=== PATIENT | male | born 1945 | race African-American/Black ===

== ENCOUNTER 2018-06-09 11:15 | Inpatient (IN) | payer OTHER, MEDICAID ==
[~2018-06-09] VITALS: Ht 175.3 cm; Wt 73.0 kg
[2018-06-09] VITALS (9 sets, daily range): BP systolic 121–183; BP diastolic 71–110
[~2018-06-09 11:15] MED LIST: AMLO10TA80 PO; ASPI-1159 PO; ATOR20TA65 PO; CHOL200077 PO
[2018-06-09] MEDS ORDERED: DILTIAZEM HCL 5MG/ML 5ML VIAL IV ONE (11:30)
[2018-06-09 12:34] LABS: BG BASE EXCESS 1.6 mmol/L (-2.0-2.0); BG CARBOXYHEMOGLOBIN 0.3 % (0.5-1.5); BG DEOXYHEMOGLOBIN 6.9 % (0.0-5.0); BG FRACTION INSPIRED OXYGEN 21; BG HCO3 ACT 26.5 mmol/L (22.0-26.0); BG OXYGEN SATURATION 93.1 % (92.0-98.5); BG OXYHEMOGLOBIN 92.8 % (94.0-97.0); BG PCO2 42.6 mmHg (35.0-45.0); BG PH 7.411 (7.350-7.450); BG PO2 68.8 mmHg (75.0-100.0); BG SAMPLE SITE RIGHT RADIAL; BG TOTAL HEMOGLOBIN 13.7 g/dL (12.0-18.0); BG VENT MODE ROOM AIR
[2018-06-09 13:22] LABS: BASOPHILS % 1.2 % (0.0-2.0); EOSINOPHILS % 6.2 % (0.0-5.0); HEMATOCRIT. 43.3 % (42.0-52.0); HEMOGLOBIN. 14.2 g/dL (14.0-18.0); LYMPHOCYTES % 21.8 % (20.0-50.0); MEAN CORPUSCULAR HEMOGLOBIN 25.7 pg (28.0-32.0); MEAN CORPUSCULAR VOLUME 78.4 fL (80.0-94.0); MEAN PLATELET VOLUME 8.6 fl (7.4-10.4); MONOCYTES % 8.3 % (2.0-8.0); NEUTROPHILS % 62.5 % (40.0-76.0); PLATELET 224 x1000/uL (130-400); RED BLOOD CELL COUNT 5.52 mill/uL (4.7-6.1); RED CELL DISTRIBUTION WIDTH 14.7 % (11.6-14.6)
[2018-06-09 13:32] LABS: CHLORIDE 105 mEq/L (98-107)
[2018-06-09 13:33] LABS: PARTIAL THROMBOPLASTIN TIME 29.9 sec (23.4-31.0); PROTHROMBIN TIME 10.5 sec (9.1-11.1)
[2018-06-09 13:40] LABS: CREATINE KINASE 65 IU/L (39-308)
[2018-06-09] MEDS ORDERED: ASPIRIN 325MG TABLET PO ONE (13:45)
[2018-06-09] MEDS ORDERED: ONDANSETRON HCL 4MG/2ML INJ IV PRN (15:30)
[2018-06-09] MEDS ORDERED: ACETAMINOPHEN 325MG TABLET PO PRN (15:30)
[2018-06-09] MEDS ORDERED: ENALAPRIL 2.5MG/2ML VIAL 2ML IV NR (16:00)
[2018-06-09] MEDS: ENOXAPARIN 40MG/0.4ML SYR SUBCUT SCH (17:52)
[2018-06-09] MEDS: METOPROLOL TARTRATE 25MG TABLET PO SCH (21:01)
[2018-06-09] MEDS: AMLODIPINE 5MG TABLET PO SCH (21:01)
[2018-06-10] VITALS (13 sets, daily range): BP systolic 99–175; BP diastolic 20–93
[2018-06-10 06:21] LABS: BASOPHILS % 1.1 % (0.0-2.0); HEMATOCRIT. 35.9 % (42.0-52.0); HEMOGLOBIN. 11.8 g/dL (14.0-18.0); LYMPHOCYTES % 21.7 % (20.0-50.0); MEAN CORPUSCULAR HEMOGLOBIN 25.4 pg (28.0-32.0); MEAN CORPUSCULAR VOLUME 77.5 fL (80.0-94.0); MEAN PLATELET VOLUME 8.8 fl (7.4-10.4); MONOCYTES % 9.3 % (2.0-8.0); NEUTROPHILS % 60.9 % (40.0-76.0); PLATELET 205 x1000/uL (130-400); RED BLOOD CELL COUNT 4.64 mill/uL (4.7-6.1); RED CELL DISTRIBUTION WIDTH 14.9 % (11.6-14.6)
[2018-06-10 07:47] LABS: CHLORIDE 103 mEq/L (98-107)
[2018-06-10] MEDS ORDERED: POTASSIUM CHLORIDE 20MEQ TABLET SR PO SCH (08:15)
[2018-06-10] MEDS: METOPROLOL TARTRATE 25MG TABLET PO SCH ×2 (09:47→21:24)
[2018-06-10] MEDS: CLOPIDOGREL 75MG TABLET PO SCH (09:47)
[2018-06-10] MEDS: AMLODIPINE 5MG TABLET PO SCH ×2 (09:48→21:22)
[2018-06-10] MEDS: ASPIRIN 81MG EC TABLET PO SCH (12:33)
[2018-06-10] MEDS: ENALAPRIL 2.5MG/2ML VIAL 2ML IV PRN (12:33)
[2018-06-10 15:33] LABS: T4 FREE 0.98 ng/dL (0.76-1.46)
[2018-06-10 15:58] LABS: FOLIC ACID (FOLATE) SERUM 10.7 ng/mL (>5.38)
[2018-06-10] MEDS: ENOXAPARIN 40MG/0.4ML SYR SUBCUT SCH (16:00)
[2018-06-10] MEDS ORDERED: ATORVASTATIN CALCIUM 10MG TABLET PO SCH (21:00)
[2018-06-11] VITALS (14 sets, daily range): BP systolic 140–173; BP diastolic 58–97
[2018-06-11 07:04] LABS: BASOPHILS % 1.3 % (0.0-2.0); EOSINOPHILS % 7.2 % (0.0-5.0); HEMATOCRIT. 38.2 % (42.0-52.0); HEMOGLOBIN. 12.4 g/dL (14.0-18.0); LYMPHOCYTES % 19.7 % (20.0-50.0); MEAN CORPUSCULAR HEMOGLOBIN 25.2 pg (28.0-32.0); MEAN CORPUSCULAR VOLUME 77.7 fL (80.0-94.0); MEAN PLATELET VOLUME 8.9 fl (7.4-10.4); MONOCYTES % 7.8 % (2.0-8.0); PLATELET 224 x1000/uL (130-400); RED BLOOD CELL COUNT 4.91 mill/uL (4.7-6.1); RED CELL DISTRIBUTION WIDTH 14.5 % (11.6-14.6)
[2018-06-11 08:09] LABS: CHLORIDE 106 mEq/L (98-107)
[2018-06-11] MEDS: CLOPIDOGREL 75MG TABLET PO SCH (08:51)
[2018-06-11] MEDS: ASPIRIN 81MG EC TABLET PO SCH (08:52)
[2018-06-11] MEDS: AMLODIPINE 5MG TABLET PO SCH ×2 (08:52→22:18)
[2018-06-11] MEDS: METOPROLOL TARTRATE 25MG TABLET PO SCH ×2 (08:52→21:00)
[2018-06-11] MEDS: HYDRALAZINE HCL 25MG TABLET PO SCH ×3 (09:06→22:18)
[2018-06-11] MEDS: ENALAPRIL 2.5MG/2ML VIAL 2ML IV PRN (10:46)
[2018-06-11] MEDS: ENOXAPARIN 40MG/0.4ML SYR SUBCUT SCH (16:00)
[2018-06-11] MEDS: ATORVASTATIN CALCIUM 20MG TABLET PO SCH (22:17)
[2018-06-12] VITALS (12 sets, daily range): BP systolic 106–179; BP diastolic 66–103
[2018-06-12 05:54] LABS: BASOPHILS % 0.9 % (0.0-2.0); EOSINOPHILS % 6.9 % (0.0-5.0); HEMATOCRIT. 40.2 % (42.0-52.0); HEMOGLOBIN. 13.2 g/dL (14.0-18.0); LYMPHOCYTES % 18.7 % (20.0-50.0); MEAN CORPUSCULAR HEMOGLOBIN 25.7 pg (28.0-32.0); MEAN CORPUSCULAR VOLUME 78.3 fL (80.0-94.0); MONOCYTES % 7.2 % (2.0-8.0); NEUTROPHILS % 66.3 % (40.0-76.0); RED BLOOD CELL COUNT 5.14 mill/uL (4.7-6.1); RED CELL DISTRIBUTION WIDTH 14.5 % (11.6-14.6)
[2018-06-12] MEDS: HYDRALAZINE HCL 25MG TABLET PO SCH ×3 (06:34→21:22)
[2018-06-12 08:16] LABS: PLATELET 236 x1000/uL (130-400)
[2018-06-12] MEDS: CLOPIDOGREL 75MG TABLET PO SCH (08:23)
[2018-06-12] MEDS: ASPIRIN 81MG EC TABLET PO SCH (08:24)
[2018-06-12] MEDS: AMLODIPINE 5MG TABLET PO SCH (08:24)
[2018-06-12] MEDS: METOPROLOL TARTRATE 25MG TABLET PO SCH (08:24)
[2018-06-12 09:43] LABS: CHLORIDE 107 mEq/L (98-107)
[2018-06-12] MEDS ORDERED: DILTIAZEM HCL 30MG TABLET PO SCH (14:00)
[2018-06-12] MEDS: ENOXAPARIN 40MG/0.4ML SYR SUBCUT SCH (15:30)
[2018-06-12] MEDS ORDERED: METOPROLOL TARTRATE 25MG TABLET PO SCH (21:00)
[2018-06-12] MEDS: METOPROLOL TARTRATE 50MG TABLET PO SCH (21:21)
[2018-06-12] MEDS: ATORVASTATIN CALCIUM 20MG TABLET PO SCH (21:21)
[2018-06-13] VITALS (14 sets, daily range): BP systolic 121–162; BP diastolic 61–93
[2018-06-13] MEDS: METOPROLOL TARTRATE 50MG TABLET PO SCH ×2 (05:57→14:26)
[2018-06-13] MEDS: HYDRALAZINE HCL 25MG TABLET PO SCH ×2 (05:57→14:26)
[2018-06-13 06:06] LABS: BASOPHILS % 0.9 % (0.0-2.0); EOSINOPHILS % 6.8 % (0.0-5.0); HEMATOCRIT. 39.5 % (42.0-52.0); HEMOGLOBIN. 13.1 g/dL (14.0-18.0); LYMPHOCYTES % 20.2 % (20.0-50.0); MEAN CORPUSCULAR HEMOGLOBIN 25.8 pg (28.0-32.0); MEAN CORPUSCULAR VOLUME 77.8 fL (80.0-94.0); MEAN PLATELET VOLUME 9.1 fl (7.4-10.4); MONOCYTES % 8.9 % (2.0-8.0); NEUTROPHILS % 63.2 % (40.0-76.0); PLATELET 257 x1000/uL (130-400); RED BLOOD CELL COUNT 5.07 mill/uL (4.7-6.1); RED CELL DISTRIBUTION WIDTH 14.6 % (11.6-14.6)
[2018-06-13 06:15] LABS: CHLORIDE 105 mEq/L (98-107)
[2018-06-13] MEDS: ASPIRIN 81MG EC TABLET PO SCH (08:43)
[2018-06-13] MEDS: CLOPIDOGREL 75MG TABLET PO SCH (08:59)
[2018-06-13] MEDS: ENOXAPARIN 40MG/0.4ML SYR SUBCUT SCH (16:00)
== END 2018-06-13 17:15 | disposition home health service (06) | DRG 64 ==
LOC: ER 11:35 → EDBEDREQ 11:50 → ENRESERV 12:25 → 5EST 12:58 → EDBEDREQ 13:05
PROVIDERS: ADMIT Internal Medicine; ATTEND Internal Medicine
PROC: 4A00X4Z Measurement of Central Nervous Electrical Activity, External Approach (ICD-10-PCS; principal; 2018-06-12)
DX: I63.233 Cerebral infarction due to unspecified occlusion or stenosis of bilateral carotid arteries (principal); G93.41 Metabolic encephalopathy; I47.1 Supraventricular tachycardia; J98.11 Atelectasis; G81.91 Hemiplegia, unspecified affecting right dominant side; I16.9 Hypertensive crisis, unspecified; I11.9 Hypertensive heart disease without heart failure; R47.01 Aphasia; E78.00 Pure hypercholesterolemia, unspecified; E87.6 Hypokalemia; E78.5 Hyperlipidemia, unspecified; G30.9 Alzheimer's disease, unspecified; I49.8 Other specified cardiac arrhythmias; F02.80 Dementia in other diseases classified elsewhere, unspecified severity, without behavioral disturbance, psychotic disturbance, mood disturbance, and anxiety; R26.9 Unspecified abnormalities of gait and mobility; R47.1 Dysarthria and anarthria; D64.9 Anemia, unspecified; D72.829 Elevated white blood cell count, unspecified; J45.909 Unspecified asthma, uncomplicated; R09.02 Hypoxemia; R13.10 Dysphagia, unspecified; Z79.02 Long term (current) use of antithrombotics/antiplatelets; Z79.82 Long term (current) use of aspirin; Z79.899 Other long term (current) drug therapy
CPT/HCPCS: 36415; 36600; 70544; 70551; 71045; 80048; 80061; 82140; 82375; 82550; 82553; 82607; 82746; 82805; 82962; 83036; 83605; 83735; 83880; 84145; 84439; 84443; 84481; 84484; 92610; 93005; 93306; 93880; 96372; 96374; 96375; 97110; 97116; 97162; 97166; 99291; J1650; J3490